=== PATIENT | female | born 1990 | race Caucasian/White ===

== ENCOUNTER 2019-08-03 17:59 | Emergency (ER) | payer BC, MEDICAID ==
[~2019-08-03] VITALS: Ht 170.2 cm; Wt 68.0 kg
[2019-08-03 17:59] VITALS: BP_SYST 158
--- NOTE | 2019-08-03 18:00 | NUR ---
Patient to ER bed 04 to gown for evaluation. Side rails up. Report given to Heike/Luis.
[2019-08-03] MEDS ORDERED: NACL 0.9% 1,000 ML IV ONE (18:04)
--- NOTE | 2019-08-03 18:10 | NUR ---
pt antonio Enciso's deputy for med clearance. Pt reports that she is 4-5 months preg. Currently c/o lower abd bed. Pt is very anxious. Attempted to calm the pt.
--- NOTE | 2019-08-03 18:15 | NUR ---
ER at bedside examining patient.
--- NOTE | 2019-08-03 18:20 | NUR ---
# 20 gauge angiocath placed to LAC. Use of asceptic technique. Opsite placed over site. Blood return noted. Blood for lab drawn from site. Flushed with 10 cc of normal saline. No evidence of infiltration noted. Patient tolerated well.
--- NOTE | 2019-08-03 18:40 | NUR ---
Patient transported to radiology via WC, accompanied by US tech. Addendum: 08/03/19 at 1850 by GARRET accompanied by deputnina
--- NOTE | 2019-08-03 19:10 | NUR ---
pt returned from . patrol deputy sheriff at the bedside
[2019-08-03 19:17] LABS: BASOPHILS % (AUTO) 0.2 % (0.0-2.0); EOSINOPHILS # (AUTO) 0.2 K/uL (0.0-0.4); EOSINOPHILS % (AUTO) 2.2 % (0.0-4.0); HEMATOCRIT 35.6 % (36-48); HEMOGLOBIN 12.5 g/dL (12.0-16.0); LYMPHOCYTES # (AUTO) 2.5 K/uL (1.0-5.5); LYMPHOCYTES % (AUTO) 26.2 % (20.5-51.5); MEAN CORPUSCULAR HEMOGLOBIN 32 pg (27-31); MEAN CORPUSCULAR HGB CONC 35 % (32-36); MEAN CORPUSCULAR VOLUME 92 fL (79.0-98.0); MONOCYTES # (AUTO) 0.7 K/uL (0.0-1.0); MONOCYTES % (AUTO) 7.3 % (1.7-9.3); NEUTROPHILS # (AUTO) 6.1 K/uL (1.8-7.7); NEUTROPHILS % (AUTO) 64.1 % (40.0-70.0); PLATELET COUNT (AUTO) 221 K/uL (130-430); RED BLOOD CELL COUNT(AUTO) 3.87 MIL/uL (4.2-6.2); RED CELL DISTRIBUTION WIDTH 12.4 % (9.0-15.0); WHITE BLOOD COUNT (AUTO) 9.5 K/uL (4.8-10.8)
--- NOTE | 2019-08-03 19:21 | NUR ---
Report given to Hoa VANN
[2019-08-03 19:25] LABS: BILIRUBIN,URINE NEGATIVE (NEGATIVE); BLOOD, URINE NEGATIVE (NEGATIVE); CLARITY/URINE SL CLOUDY (CLEAR); COLOR,URINE YELLOW (YELLOW); GLUCOSE,URINE NEGATIVE (NEGATIVE); KETONES,URINE NEGATIVE (NEGATIVE); LEUKOCYTE ESTERASE ,URINE NEGATIVE (NEGATIVE); NITRITE, URINE POSITIVE (NEGATIVE); PROTEIN URINE NEGATIVE (NEGATIVE); UROBILINOGEN,URINE 0.2 (0.2-1.0)
[2019-08-03 19:43] LABS: BARBITURATE, URINE NEGATIVE (NEG <=200); BENZODIAZEPINE, URINE NEGATIVE (NEG <=150); CANNABINOID, URINE NEGATIVE (NEG <=50); COCAINE, URINE NEGATIVE (NEG <=150); METHAMPHETAMINES SCREEN,URINE NEGATIVE (NEG <=500); OPIATE, URINE NEGATIVE (NEG <=100); PHENCYCLIDINE SCREEN,URINE NEGATIVE (NEG <=25); UR TRICYCLIC ANTIDEPRESSANTS NEGATIVE (NEG <=300); URINE AMPHETAMINE NEGATIVE (NEG <=500); URINE METHADONE NEGATIVE (NEG <=200); URINE OXYCODONE SCREEN NEGATIVE (NEG <=100); URINE PROPOXYPHENE SCREEN NEGATIVE (NEG <=300)
[2019-08-03 19:49] LABS: INR 0.9 (0.8-1.2); PROTHROMBIN TIME 8.9 SECS (9.5-12.5)
[2019-08-03 19:59] LABS: ANION GAP 9 (5-15); CALCIUM 8.4 mg/dL (8.4-11.0); CHLORIDE 101 mmol/L (98-107); CREATININE 0.67 mg/dL (0.55-1.30); GLUCOSE 103 mg/dL (70-99); POTASSIUM 3.2 mmol/L (3.5-5.1); SODIUM SERUM 136 mmol/L (136-145); UREA NITROGEN, BLOOD 12 mg/dL (8-21)
[2019-08-03 20:03] LABS: ALANINE AMINOTRANSFERASE 30 U/L (12-78); AMYLASE 63 U/L (0-100); ASPARTATE AMINOTRANSFERASE 21 U/L (10-37); LIPASE 185 U/L (73-393); TOTAL BILIRUBIN 0.1 mg/dL (0.0-1.0)
[2019-08-03 20:08] LABS: ALCOHOL, BLOOD < 3 mg/dL (<10); GFR AFRICAN AMERICAN 135 mL/min (>90)
[2019-08-03 20:12] LABS: BACTERIA,URINE MANY /HPF (None Seen); RBC,URINE 0-3 /HPF (0-3)
[2019-08-03 20:13] LABS: CALCIUM OXALATE CRYSTALS,UR 0-10 /HPF (None Seen); MUCUS,URINE 2+ /LPF (None Seen)
[2019-08-03 20:27] LABS: BILIRUBIN,DIRECT < 0.1 mg/dL (0.0-0.3); HCG,QUANTITATIVE 15246 mIU/ML (0-6)
--- NOTE | 2019-08-03 20:35 | NUR ---
Patient given written and verbal discharge instructions and verbalizes understanding. ER MD discussed with patient the results and treatment provided. Patient in stable condition. ID arm band removed. IV catheter removed intact and dressing applied, no active bleeding. Rx of MACROBID given. Patient educated on pain management and to follow up with PMD. Pain Scale 0/10. Opportunity for questions provided and answered. Medication side effect fact sheet provided.
[2019-08-03 20:40] VITALS: BP_SYST 109
== END 2019-08-03 20:40 ==
LOC: SED 17:59
DX: O26.891 Other specified pregnancy related conditions, first trimester (principal); O99.332 Smoking (tobacco) complicating pregnancy, second trimester; R10.11 Right upper quadrant pain; Z3A.18 18 weeks gestation of pregnancy; Z02.89 Encounter for other administrative examinations
CPT/HCPCS: 36415; 76805; 80053; 80076; 80307; 81000; 81025; 82150; 83605; 83690; 84702; 85025; 85610; 85730; 86900; 86901; 87040; 87086; 87186; 99284; G0482; J7030

== ENCOUNTER 2019-08-21 02:22 | Emergency (ER) | payer MEDICAID ==
[~2019-08-21] VITALS: Ht 170.2 cm; Wt 80.3 kg
[2019-08-21 03:07] VITALS: BP_SYST 130
--- NOTE | 2019-08-21 03:12 | NUR ---
Patient triaged and placed in waiting room. VSS and patient appears in no acute distress at this time. Accompanied by self, was dropped off by father, awaiting available bed, and MD notified of need for MSE.
--- NOTE | 2019-08-21 05:02 | NUR ---
Called for bed, no answer.
== END 2019-08-21 05:00 | disposition left against medical advice (07) ==
LOC: SED 02:22
DX: K13.79 Other lesions of oral mucosa (principal); Z53.21 Procedure and treatment not carried out due to patient leaving prior to being seen by health care provider

== ENCOUNTER 2023-02-20 12:30 | Emergency (ER) | payer MEDICAID ==
[~2023-02-20] VITALS: Ht 165.1 cm; Wt 72.6 kg
--- NOTE | 2023-02-20 12:41 | NUR ---
Patient to ER bed 06 to gown for evaluation. Side rails up.
[2023-02-20 12:42] VITALS: BP_SYST 132; PULSE 120; RESP 18; TEMP 98.3; O2SAT 97
--- NOTE | 2023-02-20 12:42 | NUR ---
PT BIBA IN CUSTODY WITH [employer] [employer], PT AGITATED, RESTLESS, FOLLWING SIMPLE COMMANDS, INCONTINENT OF URINE. DENIES ANY CP OR SOB. RESP EVEN AND UNLABORED, ON RA @99%. SKIN W/D/I. BS-93MG/DL AT BEDSIDE.
[2023-02-20] MEDS ORDERED: LORazepam 2 MG/ML VIAL IM ONE (13:00)
[2023-02-20] MEDS ORDERED: HALOPERIDOL LACTATE 5 MG/ML VIAL IM ONE (13:00)
--- NOTE | 2023-02-20 13:01 | NUR ---
MEDICATED ORDERED, PT ON TELE MONITOR
--- NOTE | 2023-02-20 13:55 | NUR ---
PT WITH EYES CLOSED, RESP EVEN AND UNLABORED, ON RA @98%, [place] [employer] IN ROOM.
--- NOTE | 2023-02-20 14:06 | NUR ---
PT WAKING UP IN BED, BEDPAN AND WATER OFFERED, PT REFUSED. STATES " LEAVE ME THE FUCK ALONE!"
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
--- NOTE | 2023-02-20 15:19 | NUR ---
PT WITH EYES CLOSED, IN NAD. RESP EVEN AND UNALBORED, ON RA @97%. VSS
--- NOTE | 2023-02-20 18:46 | NUR ---
NO ACUTE CHANGES IN CONDITION, PT WITH EYES CLOSED, RESP EVEN AND UNLABORED, ON RA @98% VSS.
--- NOTE | 2023-02-20 19:15 | NUR ---
Received report from 7A-7P RN. Pt came in Altered, now stable, and asleep pending disposition.
--- NOTE | 2023-02-20 20:48 | NUR ---
Pt asleep, NAD noted. VS and Resp WNL
[2023-02-20] MEDS ORDERED: NALO4SPR NS (22:47)
[2023-02-20 23:20] VITALS: BP_SYST 120; PULSE 68; RESP 18; TEMP 97.1; O2SAT 100
--- NOTE | 2023-02-20 23:20 | NUR ---
Patient given written and verbal discharge instructions and verbalizes understanding. Given copies of tests performed during visit. Patient is awake, alert and oriented. Ambulatory with steady gait. Refuses offer of penitentiary placement. Given list of available shelters in surrounding areas. PATIENT PROVIDED UBER TO ADDRESS OF CHOICE
== END 2023-02-20 23:20 | disposition home or self-care (01) ==
LOC: SED 12:30
DX: F15.20 Other stimulant dependence, uncomplicated (principal); R45.1 Restlessness and agitation; Z79.899 Other long term (current) drug therapy
CPT/HCPCS: 99285; 84703; 36415; 96372; G0482; J1630; J2060

== ENCOUNTER 2023-08-24 17:26 | Emergency (ER) | payer MEDICAID ==
[~2023-08-24] VITALS: Ht 170.2 cm; Wt 77.1 kg
[~2023-08-24 17:26] MED LIST: NALO4SPR NS
[2023-08-24 17:33] VITALS: BP_SYST 139; PULSE 123; RESP 25; TEMP 98.5; O2SAT 99
[2023-08-24 18:14] LABS: BILIRUBIN,URINE NEGATIVE (NEGATIVE); BLOOD, URINE 2+ (NEGATIVE); CLARITY/URINE SL CLOUDY (CLEAR); COLOR,URINE YELLOW (YELLOW); GLUCOSE,URINE NEGATIVE (NEGATIVE); KETONES,URINE NEGATIVE (NEGATIVE); LEUKOCYTE ESTERASE ,URINE 3+ (NEGATIVE); NITRITE, URINE POSITIVE (NEGATIVE); PROTEIN URINE 2+ (NEGATIVE)
[2023-08-24 18:25] LABS: BACTERIA,URINE MODERATE /HPF (None Seen); MUCUS,URINE None Seen /LPF (None Seen); RBC,URINE 0-3 /HPF (0-3); WBC,URINE >100 /HPF (0-3)
[2023-08-24 18:48] LABS: BASOPHILS % (AUTO) 0.2 % (0.0-2.0); CALCIUM 9.3 mg/dL (8.4-11.0); CREATININE 0.88 mg/dL (0.55-1.30); EOSINOPHILS % (AUTO) 0.4 % (0.0-4.0); HEMATOCRIT 38.4 % (36-48); HEMOGLOBIN 13.6 g/dL (12.0-16.0); LYMPHOCYTES # (AUTO) 1.7 K/uL (1.0-5.5); LYMPHOCYTES % (AUTO) 13.8 % (20.5-51.5); MEAN CORPUSCULAR HEMOGLOBIN 34 pg (27-31); MEAN CORPUSCULAR HGB CONC 35 % (32-36); MEAN CORPUSCULAR VOLUME 95 fL (79.0-98.0); MONOCYTES % (AUTO) 8.6 % (1.7-9.3); NEUTROPHILS # (AUTO) 9.3 K/uL (1.8-7.7); PLATELET COUNT (AUTO) 241 K/uL (130-430); RED BLOOD CELL COUNT(AUTO) 4.05 MIL/uL (4.2-6.2); RED CELL DISTRIBUTION WIDTH 13.6 % (9.0-15.0); WHITE BLOOD COUNT (AUTO) 12.1 K/uL (4.8-10.8)
[2023-08-24 18:51] LABS: SERUM HCG (QUALITATIVE) NEGATIVE (NEGATIVE)
[2023-08-24 19:24] LABS: ALBUMIN 3.2 g/dL (3.4-4.8); BILIRUBIN,DIRECT 0.2 mg/dL (0.0-0.3); TOTAL BILIRUBIN 0.5 mg/dL (0.0-1.0); TOTAL PROTEIN, SERUM 8.1 g/dL (6.4-8.3)
[2023-08-24] MEDS ORDERED: NITR-85 PO (20:42)
[2023-08-24] MEDS ORDERED: IBUP-1969 PO (20:42)
[2023-08-24] MEDS ORDERED: cefTRIAXone 1 GM in LIDOCAINE 1%, 20 ML MDV 2.1 ML IM ONE (20:45)
[2023-08-24 21:31] VITALS: BP_SYST 139; PULSE 123; RESP 25; TEMP 98.5; O2SAT 99
== END 2023-08-24 21:35 | disposition home or self-care (01) ==
LOC: SED 17:26
DX: N12 Tubulo-interstitial nephritis, not specified as acute or chronic (principal); R53.1 Weakness; R10.9 Unspecified abdominal pain; Z79.899 Other long term (current) drug therapy
CPT/HCPCS: 99284; 71045; 80076; 80048; 81001; 82150; 84703; 83690; 85025; 87086; 36415; 96372; 83605; 82397; 81000; 81015; J0696; J2001

== ENCOUNTER 2024-05-25 20:27 | Emergency (ER) | payer MEDICAID ==
[~2024-05-25] VITALS: Ht 170.2 cm; Wt 70.3 kg
[~2024-05-25 20:27] MED LIST changes: +IBUP-1969 PO; +NITR-85 PO
[2024-05-25 20:38] VITALS: BP_SYST 142; PULSE 97; RESP 21; TEMP 97.9; O2SAT 97
[2024-05-25] MEDS: KETOROLAC TROMETHAMINE 60 MG/2 ML VIAL IM ONE (21:15)
[2024-05-25] MEDS ORDERED: IBUP-1969 PO (21:25)
[2024-05-25 21:59] VITALS: BP_SYST 142; PULSE 97; RESP 21; TEMP 97.9; O2SAT 97
== END 2024-05-25 21:59 | disposition home or self-care (01) ==
LOC: SED 20:27
DX: M94.0 Chondrocostal junction syndrome [Tietze] (principal)
CPT/HCPCS: 99283; 71046; 93005; 81025; 96372; J1885